=== PATIENT | female | born 1955 | race Caucasian/White ===

== ENCOUNTER 2020-07-10 22:43 | Emergency (ER) | payer MEDICAID ==
[~2020-07-10] VITALS: Ht 154.9 cm; Wt 59.1 kg
[2020-07-10 22:53] VITALS: Ht 154.9 cm; Wt 59.1 kg
[2020-07-10] MEDS ORDERED: GLIPIZIDE METFORMIN PO (22:55)
[2020-07-10] MEDS ORDERED: CATAPRES0.1 MG PO (22:56)
[2020-07-10] MEDS ORDERED: PLAVIX75 MG PO (22:56)
[2020-07-10] MEDS ORDERED: COREG25 MG PO (22:56)
[2020-07-10] MEDS ORDERED: BAYER CHEWABLE81 MG PO (22:57)
[2020-07-10] MEDS ORDERED: LIPITOR40 MG PO (22:57)
[2020-07-10] MEDS ORDERED: COZAAR50 MG PO (22:57)
[2020-07-10] MEDS ORDERED: CARDIZEM30 MG PO (22:57)
[2020-07-10] MEDS ORDERED: COLON HEALTH (22:58)
[2020-07-10 23:11] LABS: BASOPHILS 0.2 % (0-2); HEMATOCRIT 35.2 % (36.0-48.0); HEMOGLOBIN 11.8 g/dL (12-16); IMMATURE GRANULOCYTES 0.2 % (0-5); LYMPHOCYTES 30.5 % (15-50); MCH 31.2 pg (26.0-34.0); MCHC 33.5 g/dL (31.0-37.0); MCV 93.1 fL (80.0-100.0); MONOCYTES 8.7 % (2-11); NEUTROPHILS 58.4 % (40-80); PLATELET COUNT 171 10x3/uL (130-400); RBC 3.78 10x6/uL (4.00-5.40); RDW 13.9 % (11.5-14.5); WBC 5.4 10x3/uL (4.8-10.8)
[2020-07-10 23:22] LABS: ANION GAP 9.7 mmol/L (8-16); CALCIUM 9.4 mg/dL (8.5-10.1); CARBON DIOXIDE 28.7 mmol/L (21.0-32.0); CREATININE - SERUM 0.9 mg/dL (0.6-1.3); POTASSIUM - SERUM 3.4 mmol/L (3.5-5.1)
[2020-07-10 23:25] LABS: ALBUMIN 3.4 g/dL (3.4-5.0); BILIRUBIN - TOTAL 0.51 mg/dL (0.2-1.3); PROTEIN - SERUM 6.8 g/dL (6.4-8.2)
[2020-07-11 00:38] LABS: UDS - AMPHET NEGATIVE QUAL (NEGATIVE); UDS - BARB NEGATIVE QUAL (NEGATIVE); UDS - BENZO NEGATIVE QUAL (NEGATIVE); UDS - COCAINE NEGATIVE QUAL (NEGATIVE); UDS - OPIATE NEGATIVE QUAL (NEGATIVE); UDS - PCP NEGATIVE QUAL (NEGATIVE); UDS - THC NEGATIVE QUAL (NEGATIVE)
[2020-07-11 00:40] LABS: BILIRUBIN NEGATIVE (NEGATIVE); KETONE NEGATIVE (NEGATIVE); NITRITE POSITIVE (NEGATIVE); UROBILINOGEN NORMAL mg/dL (< 2)
[2020-07-11 00:41] LABS: BACTERIA MANY HPF (NONE SEEN); EPITHELIAL CELLS 0-5 /hpf (0-5)
[2020-07-11] MEDS ORDERED: LEVOFLOXACIN500 MG PO (01:30)
[2020-07-11 01:37] VITALS: BP 140/67
== END 2020-07-11 01:37 | disposition home or self-care (01) ==
LOC: D.ER 22:43
PROVIDERS: Emergency Medicine
DX: N30.00 Acute cystitis without hematuria (principal); E11.65 Type 2 diabetes mellitus with hyperglycemia; Z86.73 Personal history of transient ischemic attack (TIA), and cerebral infarction without residual deficits; I10 Essential (primary) hypertension; Z79.84 Long term (current) use of oral hypoglycemic drugs